=== PATIENT | male | born 1985 | race Caucasian/White ===

== ENCOUNTER → 2020-07-02 14:54 | Outpatient (BNVA) | payer OTHER, SELFPAY | PROVIDERS: Family Provider Nurse Practitioner; PCP Nurse Practitioner | DX: Z11.59 Encounter for screening for other viral diseases (principal) | CPT/HCPCS: 87635 ==

== ENCOUNTER 2020-07-19 21:16 | Emergency (ER) | payer SELFPAY ==
[2020-07-19 21:28] VITALS: BP 137/82; PULSE 92; RESP 18; TEMP 36.7; O2SAT 97; BMI 30.1
--- NOTE | 2020-07-19 21:37 | XR_ITS ---
WS: [id number] XR chest 1V portable [id number] REASON FOR EXAM: Dyspnea FINDINGS: Chest is unchanged compared to 09/09/2013. Very prominent ascending aorta for age. Cannot exclude a significant ascending aortic dilatation. Hea rt size is normal. Calcified granulomatous changes in both hemithoraces. No active pulmonary parenchymal or pleural dise ase. Bony thorax is intact. XR/XR chest 1V portable [id number] IMPRESSION: No acute abnormality. The [place] ascending aorta is tortuous and prominent for patient's age as above.
--- NOTE | 2020-07-19 21:38 | ECG_ITS ---
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
--- NOTE | 2020-07-19 21:46 | W.ED.ARRPALP ---
HPI - Arrhythmia/Palpitations General: Chief Complaint: Arrhythmia/Palpitations Stated Complaint: RAPID HEARTBEAT,SOB Time Seen by Provider: 07/19/20 21:36 Source: patient Mode of arrival: ambulatory Limitations: no limitations History of Present Illness: HPI narrative: Nicho is a nice 35-year-old male who comes in with multiple complaints. He complains of chest discomfort, palpitations, shortness of breath, cough, malaise among many other complaints. Patient states that he was diagnosed with Covid on the seventh of this month but after 2 weeks he was told by his doctor in the health department if he had no further symptoms he was no longer negative and could come out of quarantine. Patient still has occasional cough and shortness of breath. He denies any fever or sore throat. Alex's symptoms were abrupt in onset and he was most concerned about his palpitations. Patient states otherwise he has no complaints and is feeling somewhat better now but still felt like he should get checked out. When the symptoms were present he was unaware of anything that made the better or worse. He denies having anything similar in the past. Associated symptoms: Deny diaphoresis, nausea, pre-syncope, syncope or vomiting Review of Systems Const: Denies: fever(s), chills, body aches, fatigue, malaise or diaphoresis Eyes: Denies: change in vision, blurry vision, photophobia, eye discomfort, eye discharge, eye redness or yellow eyes ENMT: Denies: throat pain, odynophagia, hoarseness, swelling of lips/tongue, ear or mastoid pain, ear discharge, change in hearing or nasal discharge Card: Denies: chest pain, palpitations, irregular heart rhythm, edema, lightheadedness, syncope, pre-syncope, dyspnea on exertion or orthopnea Resp: Reports: dyspnea and non-productive cough; Denies: productive cough, wheezing, hemoptysis or chest congestion GI: Denies: nausea, vomiting, hematemesis, coffee ground emesis, heartburn, diarrhea, constipation, GI cramping, hematochezia or melena : Denies: flank pain, dysuria, urinary frequency, urinary urgency or hematuria Musc: Denies: neck pain, back pain, extremity pain, extremity swelling, joint pain, joint swelling, joint redness, joint warmth or joint stiffness Skin/Breast: Denies: rash, pruritus, erythema, skin pain or skin tenderness Neuro: Denies: headache(s), numbness in extremities, weakness in extremities, sensory changes, lack of coordination, difficulty walking, dizziness, vertigo, confusion, Slurred speech present or seizure-like activity Robin/Lymph: Denies: easy bruising, easy bleeding, petechiae, purpura or enlarged lymph nodes All/Imm: Denies: urticaria, throat swelling, tongue swelling, facial swelling or acute wheezing PFSH ED PFSH: Medical History Abnormal tympanic membrane of both ears Chest wall pain Ulnar nerve entrapment Surgical History No pertinent past surgical history Family History Grandmother Hypertension Grandfather Hypertension Dementia Social History Smoking and tobacco status: never smoked Alcohol intake: never Marital status: Number of children: 4 Current occupational status: employed Current occupation: construction Physical Exam Const: COMMON NORMALS: no acute distress, patient oriented x3, no limitations and alert GENERAL APPEARANCE: cooperative HENMT: COMMON NORMALS: normocephalic, atraumatic, external ears normal, EAC's normal and Normal external nose present HEAD & SCALP: normal to inspection, normocephalic and atraumatic FACE & SINUS: normal facial exam and face symmetric NOSE: Normal external nose present and Normal nares present EXTERNAL EAR: Yes external ears normal EXTERNAL AUDITORY CANAL: EAC's normal MOUTH: Normal oral and palatal mucosa present, lip normal and tongue normal Eye: COMMON NORMALS: Equal, round and reactive pupils present and conjunctivae normal GENERAL EYE: appearance normal, both eyes and all related structures ALIGNMENT: Yes alignment normal PERIORBITAL: periorbital findings normal EYELID: eyelids normal CONJUNCTIVA: Yes conjunctivae normal SCLERA: sclerae normal PUPIL: Yes Equal, round and reactive pupils present Neck/C-Spine: COMMON NORMALS: full ROM, no lymphadenopathy, supple, no meningeal signs and no JVD GENERAL: Yes normal visual inspection and Yes trachea midline Chest: COMMONS NORMALS: normal inspection of the chest and normal palpation of entire chest wall Resp: COMMON NORMALS: normal respiratory effort, No retractions, No use of accessory muscles and clear to auscultation bilaterally EFFORT & INSPECTION: Yes able to speak in complete sentences and Yes symmetric chest movement AUSCULTATION: clear to auscultation bilaterally, no crackles, no rales, no rhonchi and no wheezes Cardio: COMMON NORMALS: no JVD, regular rate, regular rhythm, S1 normal heart sound present and S2 normal heart sound present RATE: regular rate RHYTHM: regular rhythm HEART SOUNDS: S1 normal heart sound present, S2 normal heart sound present, no click, no gallops, no murmurs and no rubs GI: COMMON NORMALS: Soft to palpation and No hepatosplenomegaly present PALPATION: Yes Soft to palpation, No Tenderness to palpation present (GI), No Guarding due to palpation present (GI), No Rigid due to palpation, Yes No hepatosplenomegaly present, No Hernia present, No Palpable mass present and No Pulsatile mass present : COMMON NORMALS: Yes no CVA tenderness BLADDER/KIDNEY EXAM: Yes no CVA tenderness Back/Pelvis: COMMON NORMALS: no CVA tenderness, thoracic and lumbar spine normal to inspection, no thoracic nor lumbar tenderness and thoraco-lumbar ROM normal Extremity: COMMON NORMALS: normal to inspection, full ROM, capillary refill normal, no joint enlargement, no clubbing, cyanosis or edema and no calf tenderness Neuro: COMMON NORMALS: patient oriented x3, CN's II-XII intact bilaterally, moves all extremities, no focal motor deficits and no sensory deficits noted SENSORIUM/ORIENTATION: Yes alert MENINGEAL SIGNS: Yes no meningeal signs SPEECH: speech normal Psych: COMMON NORMALS: mental status grossly normal, Normal thought process present, cooperative, normal affect, speech normal and activity/motor behavior normal SPEECH: Yes normal speech THOUGHT PROCESS: Normal thought process present Skin: COMMON NORMALS: no rashes or lesions noted, turgor normal, no jaundice, no petechiae and no mottling GENERAL SKIN EXAM: no rashes or lesions noted and turgor normal Course Vital Signs: Vital signs: Vital Signs Temperature 98.1 F 07/19/20 21:28 Pulse Rate 89 07/19/20 23:00 Respiratory Rate 16 07/19/20 23:00 Blood Pressure 136/72 07/19/20 23:00 Pulse Oximetry 96 07/19/20 23:00 MDM - Arrhythmia/Palpitations MDM Narrative: Medical decision making narrative: Nicho is a very nice 35-year-old male who comes in with palpitations and some vague chest discomfort after. All of the symptoms have passed at this time without any specific treatment. Patient has no sign of acute coronary syndrome or PE. Patient is PERC rule negative but I still went ahead and got a D-dimer as he has recently had Covid and this can sometimes call clotting. His D-dimer is negative though. I did recommend and offer to monitor him further to be certain that he did not have any other things develop. I wanted to keep him to get a second EKG and troponin per the hospital chest pain pathway but he declined. Patient is a heart score of 0 and he is extremely low risk per the EDACS and TMACs pathways. Patient agrees to return if his symptoms change or worsen but at this time he is feeling better and wants to go home. Lab Data: Attestation: I reviewed the patient's lab results. Labs: Lab Results 07/19/20 07/19/20 07/19/20 Range/Units 21:51 21:51 21:51 WBC 12.1 H (4.0-10.0) 10^3/ uL RBC 4.84 (4.1-5.3) 10^6/u L Hgb 14.4 (11.7-16.6) g/dL Hct 42.6 (42.0-52.0) % MCV 88.0 (80-94) fL MCH 29.8 (28.0-34.0) pg MCHC 33.8 (30.0-36.0) g/dL RDW 11.9 L (12.1-15.1) % Plt Count 249 (130-400) 10^3/c mm MPV 9.7 (7.4-10.4) fL Neut % (Auto) 64.7 % Lymph % (Auto) 25.1 % [place] % (Auto) 8.4 % Eos % (Auto) 0.8 % Baso % (Auto) 0.5 % Neut # (Auto) 7.82 H (1.8-7.7) 10^3/u L Lymph # (Auto) 3.0 (0.8-4.8) 10^3/u L [place] # (Auto) 1.0 H (0.2-0.9) 10^3/u L Eos # (Auto) 0.1 (0.0-0.8) 10^3/u L Baso # (Auto) 0.1 (0.0-0.1) 10^3/u L Nucleated RBC % (a uto) 0 % Nucleated RBCs # 0.0 /100WBC PT 13.50 (12.1-14.9) SECO NDS INR 1.00 (0.8-1.2) D-Dimer <= 0.27 (0-0.59) ug/mIFE U Sodium 140 (136-145) mmol/L Potassium 3.9 (3.5-5.1) mmol/L Chloride 104 (98-107) mmol/L Carbon Dioxide 25 (22-29) mmol/L Anion Gap 14.9 (5-19) BUN 18 (6-20) mg/dL Creatinine 1.0 (0.7-1.2) mg/dL GFR Calculation 86.1 L (90-130) mL/min Glucose 135 H (65-115) mg/dL Calculated Osmolal ity 294 (285-295) mOsm/k g Lactic Acid (0.5-2.2) mmol/L Calcium 9.0 (8.5-10.5) mg/dL Magnesium 1.9 (1.7-2.3) mg/dL Total Bilirubin 0.2 (0.15-1.2) mg/dL AST 15 (0-40) U/L ALT 34 (0-41) U/L Alkaline Phosphata se 70 (40-130) IU/L Troponin T Baselin e (0-15) ng/L Total Protein 6.3 L (6.6-8.7) g/dL Albumin 4.2 (3.5-5.2) g/dL Globulin 2.1 (1.3-4.6) g/dL Urine Color (Yellow) Urine Appearance (CLEAR) Urine pH (5-7) Ur Specific Gravit y (1.005-1.030) Urine Protein (Negative) Urine Glucose (UA) (Normal) Urine Ketones (Negative) Urine Blood (Negative) Urine Nitrate (Negative) Urine Bilirubin (Negative) Urine Urobilinogen (Negative) mg/dL Ur Leukocyte Radha ase (Negative) Urine RBC (0-2) /hpf Urine WBC (0-5) /hpf Ur Squamous Epith Cells (0-5) /hpf Amorphous Sediment Urine Bacteria (NONE) /hpf SARS-CoV-2 Ag (Rap id) (Negative) 07/19/20 07/19/20 07/19/20 Range/Units 21:51 21:51 21:58 WBC (4.0-10.0) 10^3/ uL RBC (4.1-5.3) 10^6/u L Hgb (11.7-16.6) g/dL Hct (42.0-52.0) % MCV (80-94) fL MCH (28.0-34.0) pg MCHC (30.0-36.0) g/dL RDW (12.1-15.1) % Plt Count (130-400) 10^3/c mm MPV (7.4-10.4) fL Neut % (Auto) % Lymph % (Auto) % [place] % (Auto) % Eos % (Auto) % Baso % (Auto) % Neut # (Auto) (1.8-7.7) 10^3/u L Lymph # (Auto) (0.8-4.8) 10^3/u L [place] # (Auto) (0.2-0.9) 10^3/u L Eos # (Auto) (0.0-0.8) 10^3/u L Baso # (Auto) (0.0-0.1) 10^3/u L Nucleated RBC % (a uto) % Nucleated RBCs # /100WBC PT (12.1-14.9) SECO NDS INR (0.8-1.2) D-Dimer (0-0.59) ug/mIFE U Sodium (136-145) mmol/L Potassium (3.5-5.1) mmol/L Chloride (98-107) mmol/L Carbon Dioxide (22-29) mmol/L Anion Gap (5-19) BUN (6-20) mg/dL Creatinine (0.7-1.2) mg/dL GFR Calculation (90-130) mL/min Glucose (65-115) mg/dL Calculated Osmolal ity (285-295) mOsm/k g Lactic Acid 1.1 (0.5-2.2) mmol/L Calcium (8.5-10.5) mg/dL Magnesium (1.7-2.3) mg/dL Total Bilirubin (0.15-1.2) mg/dL AST (0-40) U/L ALT (0-41) U/L Alkaline Phosphata se (40-130) IU/L Troponin T Baselin e 6 (0-15) ng/L Total Protein (6.6-8.7) g/dL Albumin (3.5-5.2) g/dL Globulin (1.3-4.6) g/dL Urine Color (Yellow) Urine Appearance (CLEAR) Urine pH (5-7) Ur Specific Gravit y (1.005-1.030) Urine Protein (Negative) Urine Glucose (UA) (Normal) Urine Ketones (Negative) Urine Blood (Negative) Urine Nitrate (Negative) Urine Bilirubin (Negative) Urine Urobilinogen (Negative) mg/dL Ur Leukocyte Radha ase (Negative) Urine RBC (0-2) /hpf Urine WBC (0-5) /hpf Ur Squamous Epith Cells (0-5) /hpf Amorphous Sediment Urine Bacteria (NONE) /hpf SARS-CoV-2 Ag (Rap id) Negative (Negative) 07/19/20 Range/Units 22:18 WBC (4.0-10.0) 10^3/ uL RBC (4.1-5.3) 10^6/u L Hgb (11.7-16.6) g/dL Hct (42.0-52.0) % MCV (80-94) fL MCH (28.0-34.0) pg MCHC (30.0-36.0) g/dL RDW (12.1-15.1) % Plt Count (130-400) 10^3/c mm MPV (7.4-10.4) fL Neut % (Auto) % Lymph % (Auto) % [place] % (Auto) % Eos % (Auto) % Baso % (Auto) % Neut # (Auto) (1.8-7.7) 10^3/u L Lymph # (Auto) (0.8-4.8) 10^3/u L [place] # (Auto) (0.2-0.9) 10^3/u L Eos # (Auto) (0.0-0.8) 10^3/u L Baso # (Auto) (0.0-0.1) 10^3/u L Nucleated RBC % (a uto) % Nucleated RBCs # /100WBC PT (12.1-14.9) SECO NDS INR (0.8-1.2) D-Dimer (0-0.59) ug/mIFE U Sodium (136-145) mmol/L Potassium (3.5-5.1) mmol/L Chloride (98-107) mmol/L Carbon Dioxide (22-29) mmol/L Anion Gap (5-19) BUN (6-20) mg/dL Creatinine (0.7-1.2) mg/dL GFR Calculation (90-130) mL/min Glucose (65-115) mg/dL Calculated Osmolal ity (285-295) mOsm/k g Lactic Acid (0.5-2.2) mmol/L Calcium (8.5-10.5) mg/dL Magnesium (1.7-2.3) mg/dL Total Bilirubin (0.15-1.2) mg/dL AST (0-40) U/L ALT (0-41) U/L Alkaline Phosphata se (40-130) IU/L Troponin T Baselin e (0-15) ng/L Total Protein (6.6-8.7) g/dL Albumin (3.5-5.2) g/dL Globulin (1.3-4.6) g/dL Urine Color Yellow (Yellow) Urine Appearance Clear (CLEAR) Urine pH 5.0 (5-7) Ur Specific Gravit y 1.020 (1.005-1.030) Urine Protein Neg (Negative) Urine Glucose (UA) Norm (Normal) Urine Ketones Negative (Negative) Urine Blood 2+ H (Negative) Urine Nitrate Negative (Negative) Urine Bilirubin Neg (Negative) Urine Urobilinogen Norm (Negative) mg/dL Ur Leukocyte Radha ase Negative (Negative) Urine RBC 5-10 H (0-2) /hpf Urine WBC None (0-5) /hpf Ur Squamous Epith Cells None (0-5) /hpf Amorphous Sediment Not Reportable Urine Bacteria Trace (NONE) /hpf SARS-CoV-2 Ag (Rap id) (Negative) Imaging Data^: CXR: Attestation: I personally reviewed and interpreted this imaging study as follows: My impression: No acute cardiopulmonary findings. EKG Data^: EKG 1: Attestation: I personally reviewed and interpreted this EKG as follows: EKG interpretation date: 07/19/20 EKG interpretation time: 21:25 Interpretation: Normal sinus rhythm at 94 beats a minute, no blocks, normal intervals, normal axis, nonspecific ST-T wave changes. Wandering baseline artifact. Discharge Plan Discharge Patient Disposition: Home Clinical Impression: Palpitations Chest pain Qualifiers: Chest pain type: unspecified Qualified Code(s): R07.9 - Chest pain, unspecified Condition: Stable Prescriptions: No Action ibuprofen 200 mg capsule 800 mg PO Q6H PRNRF: 0 meloxicam 15 mg tablet 15 mg PO DAILY Qty: 20 RF: 0 Discharge Orders: Discharge Order (Routine); Ordered 07/19/20 Ordered By: Angelina Taylor Referrals: Boby Art, HERNÁNC [Primary Care Provider] - 1-3 days Discharge Diet: Advance as tolerated Discharge Activity: Increase activity as tolerated Patient Instructions: Chest Pain (ED), Palpitations (ED) Activity Restrictions/Additional Instructions: Please return to the ER immediately for any of the signs or symptoms listed on your discharge instruction sheets, worsening/changing of your symptoms, you are not getting better as quickly as expected, or for ANY other cause or concerns. You have been offered further evaluation and care of your heart but have declined. Of course any heart problem can potentially be life-threatening so if your symptoms return or you develop new symptoms or anything changes or worsens in any way at all please return to the ER immediately for recheck. Coding Level of Care Code ED Major Case Detective for Chg Fwd Exam Comprehensive
[2020-07-19 21:58] LABS: Basophils # 0.1 10^3/uL (0.0-0.1); Basophils % 0.5 %; Eosinophils # 0.1 10^3/uL (0.0-0.8); Eosinophils % 0.8 %; Hematocrit 42.6 % (42.0-52.0); Hemoglobin 14.4 g/dL (11.7-16.6); Lymphocytes % 25.1 %; Mean Corpuscular HGB Conc 33.8 g/dL (30.0-36.0); Mean Corpuscular Hemoglobin 29.8 pg (28.0-34.0); Mean Platelet Volume 9.7 fL (7.4-10.4); Monocytes % 8.4 %; Neutrophils # 7.82 10^3/uL (1.8-7.7); Neutrophils % 64.7 %; Nucleated Red Blood Cells % 0 %; Platelet Count 249 10^3/cmm (130-400); Red Blood Count 4.84 10^6/uL (4.1-5.3); Red Cell Distribution Width 11.9 % (12.1-15.1); White Blood Count 12.1 10^3/uL (4.0-10.0)
[2020-07-19 22:03] VITALS: PULSE 86; RESP 18; O2SAT 96
[2020-07-19] MEDS: sodium chloride 0.9% 1,000 ML 999 ML IV (22:22)
[2020-07-19 22:23] LABS: D Dimer <= 0.27 ug/mIFEU (0-0.59)
[2020-07-19 22:28] LABS: Alanine Aminotransferase 34 U/L (0-41); Albumin Level 4.2 g/dL (3.5-5.2); Alkaline Phosphatase 70 IU/L (40-130); Anion Gap 14.9 (5-19); Aspartate Amino Transferase 15 U/L (0-40); Blood Urea Nitrogen 18 mg/dL (6-20); Carbon Dioxide 25 mmol/L (22-29); Chloride 104 mmol/L (98-107); Globulin 2.1 g/dL (1.3-4.6); Glomerular Filtration Rate 86.1 mL/min (90-130); Glucose 135 mg/dL (65-115); Magnesium 1.9 mg/dL (1.7-2.3); Osmolality Calculated 294 mOsm/kg (285-295); Potassium 3.9 mmol/L (3.5-5.1); Sodium 140 mmol/L (136-145); Total Bilirubin 0.2 mg/dL (0.15-1.2); Total Protein 6.3 g/dL (6.6-8.7)
[2020-07-19 22:28] LABS: Lactic Sepsis W/Reflex 1.1 mmol/L (0.5-2.2)
[2020-07-19 22:32] LABS: Troponin(5th) Baseline 6 ng/L (0-15)
[2020-07-19 22:45] LABS: Glucose Urine UA Norm (Normal); Protein Urine Neg (Negative); Urine Appearance Clear (CLEAR); Urine Color Yellow (Yellow)
[2020-07-19 22:46] LABS: Add Urine Culture? No; Add Urine Microscopic? YES; Bacteria Urine TRACE /hpf; Bilirubin Urine Neg (Negative); Blood Urine 2+ (Negative); Ketones Urine Negative (Negative); Leukocyte Esterase Urine Negative (Negative); Nitrate Urine Negative (Negative); Urobilinogen Urine Norm (Negative)
[2020-07-19 23:00] VITALS: BP 136/72; PULSE 89; RESP 16; O2SAT 96
[2020-07-19 23:00] LABS: SARS Covid-2 Antigen Negative (Negative)
[2020-07-19 23:47] VITALS: BP 128/78; PULSE 80; RESP 16; O2SAT 98
== END 2020-07-19 23:47 | disposition home or self-care (01) ==
PROVIDERS: Emergency Provider Emergency Medicine; PCP Nurse Practitioner
DX: R07.9 Chest pain, unspecified (principal); R00.2 Palpitations
CPT/HCPCS: 12345; 71045; 80053; 81001; 83605; 83735; 84484; 85025; 85378; 85610; 87426; 93005; 96360; 99283; J7030

== ENCOUNTER 2020-08-22 18:58 | Emergency (ER) | payer SELFPAY ==
--- NOTE | 2020-08-22 19:00 | XRR_ITS ---
PROCEDURE INFORMATION: Exam: XR Chest, 1 View Exam date and time: 08/22/2020 7:11 PM Age: 35 years old Clinical indication: Patient HX: C/O chest pain and pressure; Additional info: Cp TECHNIQUE: Imaging protocol: XR of the chest Views: 1 view. COMPARISON: CR XR chest 1V portable [id number] 07/19/2020 9:48 PM FINDINGS: Lungs: Unremarkable. No consolidation. Pleural space: Unremarkable. No pleural effusion. No pneumothorax. Heart/Mediastinum: Unremarkable. No cardiomegaly. Bones/joints: Unremarkable. XR/XR chest 1V portable [id number] IMPRESSION: No acute findings.
--- NOTE | 2020-08-22 19:00 | ECG_ITS ---
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 Measurements Intervals [place] Rate: 76 P: 59 [place]: 174 QRS: 46 QRSD: 82 T: 40 QT: 367 QTc: 413 Interpretive Statements SINUS RHYTHM Compared to ECG 07/19/2020 21:25:03 T-wave abnormality no longer present Electronically Signed On 08-23-2020 23:41:22 RESIDENCY PROGRAM COORDINATOR by Kaitlynn Delarosa M.D. [id number]
[2020-08-22 19:01] VITALS: BP 156/91; PULSE 79; RESP 18; TEMP 36.5; O2SAT 98; BMI 30.2
--- NOTE | 2020-08-22 21:04 | ED_ITS ---
HPI - Chest Pain General: Chief Complaint: Chest Pain Stated Complaint: CP Time Seen by Provider: 08/22/20 20:58 History of Present Illness: HPI narrative: Patient is a 35-year-old male comes to the ED with complaints of chest pain. Patient says symptoms started approximately 3 days ago. He reports being positive for Covid approximately 2 months ago but has since recovered. He was seen here in the ED on July 19 for same complaint. He says for the past 3 days he has had on and off again chest pain that is centrally located right over the sternum. He says chest pain seems to get worse after he eats or if he is laying flat. He says he does have a history of some heartburn/acid reflux and takes Mylanta usually a couple times a week. Currently here in the ED he says his chest pain has completely resolved. Denies any shortness of breath, fever, abdominal pain, nausea/vomiting, dysuria or hematuria. He has been having some on and off again constipation diarrhea for the past month. Associated symptoms: Deny abdominal pain, dyspnea, fever(s), nausea, palpitations or vomiting Review of Systems Const: Denies: fever(s), chills or fatigue Eyes: Denies: change in vision or eye discomfort ENMT: Denies: throat pain, odynophagia, nasal discharge or nasal congestion Card: Reports: chest pain; Denies: palpitations, edema, swelling of feet/ankles, dyspnea on exertion or orthopnea Resp: Denies: dyspnea, productive cough or non-productive cough GI: Denies: abdominal pain, nausea, vomiting, diarrhea, constipation or hematochezia : Denies: flank pain, difficulty urinating, dysuria or hematuria Musc: Denies: neck pain, back pain or extremity swelling Skin/Breast: Denies: rash or new lesions Neuro: Denies: headache(s), numbness in extremities or weakness in extremities [facility] ED PFSH: Medical History Abnormal tympanic membrane of both ears Chest wall pain Ulnar nerve entrapment Surgical History No pertinent past surgical history Family History Grandmother Hypertension Grandfather Hypertension Dementia Social History Smoking and tobacco status: never smoked Alcohol intake: never Marital status: Number of children: 4 Current occupational status: employed Current occupation: construction Physical Exam Const: COMMON NORMALS: no acute distress, patient oriented x3, healthy appearing and alert GENERAL APPEARANCE: cooperative and comfortable HENMT: COMMON NORMALS: normocephalic HEAD & SCALP: normocephalic MOUTH: Normal oral and palatal mucosa present THROAT: posterior oropharynx normal and uvula midline Eye: COMMON NORMALS: Equal, round and reactive pupils present PUPIL: Yes Equal, round and reactive pupils present Neck/C-Spine: COMMON NORMALS: supple GENERAL: Yes normal visual inspection Chest: CHEST: Yes tenderness sternum and costochondral junction Resp: COMMON NORMALS: normal respiratory effort, No retractions, No use of accessory muscles and clear to auscultation bilaterally AUSCULTATION: clear to auscultation bilaterally Cardio: COMMON NORMALS: regular rate, regular rhythm, S1 normal heart sound present, S2 normal heart sound present, No gallops present (Cardio), No clicks present (Cardio), No murmurs present (Cardio) and Peripheral pulses 2+ throughout RATE: regular rate RHYTHM: regular rhythm HEART SOUNDS: S1 normal heart sound present and S2 normal heart sound present PERIPHERAL PULSES: Peripheral pulses 2+ throughout GI: COMMON NORMALS: Normal to inspection, nondistended, normoactive bowel sarah nds present, Soft to palpation, non-tender and no masses PALPATION: Yes Soft to palpation : COMMON NORMALS: Yes no CVA tenderness BLADDER/KIDNEY EXAM: Yes no CVA tenderness Back/Pelvis: COMMON NORMALS: no CVA tenderness Extremity: COMMON NORMALS: normal to inspection and no pedal edema Neuro: COMMON NORMALS: patient oriented x3 and moves all extremities SENSORIUM/ORIENTATION: Yes alert Skin: GENERAL SKIN EXAM: dry skin Course Reevaluation(s): Reevaluation #1: Here in the ED patient's chest pain is completely resolved and he has had no further episodes of chest pain while here in the ED. Vital Signs: Vital signs: Vital Signs Temperature 97.7 F 08/22/20 19:01 Pulse Rate 78 08/22/20 22:16 Respiratory Rate 16 08/22/20 22:16 Blood Pressure 128/83 08/22/20 22:16 Pulse Oximetry 98 08/22/20 22:16 MDM - Chest Pain MDM Narrative: Medical decision making narrative: Patient is a 35-year-old male who comes to the ED with chest pain. He was seen here for same complaint on July 19. Symptoms have been going on for approximately 3 days. While here in the ED he says his chest pain has resolved. Patient has some tenderness over the costochondral junction upon palpation. No other significant physical exam findings and the lungs are clear to auscultation bilaterally. CBC and CMP were unremarkable. D-dimer was normal at 0.27. Troponin negative and ECG showed no ST segment elevation or depression. Chest x-ray showed no acute findings. Patient discharged and diagnosed with chest wall pain. He was told to take ibuprofen and apply cold pack on sore spot of chest couple symptoms. Return to ED precautions given. Follow-up with PCP in 7 to 10 days. Patient understood and agreed with plan. Lab Data: Attestation: I reviewed the patient's lab results. Labs: Lab Results 08/22/20 08/22/20 08/22/20 Range/Units 21:05 21:05 21:05 WBC 11.1 H (4.0-10.0) 10^3/ uL RBC 5.15 (4.1-5.3) 10^6/u L Hgb 15.4 (11.7-16.6) g/dL Hct 45.5 (42.0-52.0) % MCV 88.3 (80-94) fL MCH 29.9 (28.0-34.0) pg MCHC 33.8 (30.0-36.0) g/dL RDW 11.9 L (12.1-15.1) % Plt Count 255 (130-400) 10^3/c mm MPV 9.6 (7.4-10.4) fL Neut % (Auto) 67.9 % Lymph % (Auto) 23.5 % [facility] % (Auto) 6.6 % Eos % (Auto) 1.1 % Baso % (Auto) 0.5 % Neut # (Auto) 7.54 (1.8-7.7) 10^3/u L Lymph # (Auto) 2.6 (0.8-4.8) 10^3/u L [facility] # (Auto) 0.7 (0.2-0.9) 10^3/u L Eos # (Auto) 0.1 (0.0-0.8) 10^3/u L Baso # (Auto) 0.1 (0.0-0.1) 10^3/u L Nucleated RBC % (a uto) 0 % Nucleated RBCs # 0.0 /100WBC D-Dimer (0-0.59) ug/mIFE U Sodium 142 (136-145) mmol/L Potassium 4.0 (3.5-5.1) mmol/L Chloride 104 (98-107) mmol/L Carbon Dioxide 26 (22-29) mmol/L Anion Gap 16.0 (5-19) BUN 13 (6-20) mg/dL Creatinine 1.0 (0.7-1.2) mg/dL GFR Calculation 86.1 L (90-130) mL/min Glucose 108 (65-115) mg/dL Calculated Osmolal ity 295 (285-295) mOsm/k g Calcium 9.1 (8.5-10.5) mg/dL Total Bilirubin 0.2 (0.15-1.2) mg/dL AST 17 (0-40) U/L ALT 24 (0-41) U/L Alkaline Phosphata se 78 (40-130) IU/L Troponin T Baselin e 6 (0-15) ng/L Total Protein 7.0 (6.6-8.7) g/dL Albumin 4.8 (3.5-5.2) g/dL Globulin 2.2 (1.3-4.6) g/dL 08/22/20 Range/Units 21:05 WBC (4.0-10.0) 10^3/ uL RBC (4.1-5.3) 10^6/u L Hgb (11.7-16.6) g/dL Hct (42.0-52.0) % MCV (80-94) fL MCH (28.0-34.0) pg MCHC (30.0-36.0) g/dL RDW (12.1-15.1) % Plt Count (130-400) 10^3/c mm MPV (7.4-10.4) fL Neut % (Auto) % Lymph % (Auto) % [facility] % (Auto) % Eos % (Auto) % Baso % (Auto) % Neut # (Auto) (1.8-7.7) 10^3/u L Lymph # (Auto) (0.8-4.8) 10^3/u L [facility] # (Auto) (0.2-0.9) 10^3/u L Eos # (Auto) (0.0-0.8) 10^3/u L Baso # (Auto) (0.0-0.1) 10^3/u L Nucleated RBC % (a uto) % Nucleated RBCs # /100WBC D-Dimer <= 0.27 (0-0.59) ug/mIFE U Sodium (136-145) mmol/L Potassium (3.5-5.1) mmol/L Chloride (98-107) mmol/L Carbon Dioxide (22-29) mmol/L Anion Gap (5-19) BUN (6-20) mg/dL Creatinine (0.7-1.2) mg/dL GFR Calculation (90-130) mL/min Glucose (65-115) mg/dL Calculated Osmolal ity (285-295) mOsm/k g Calcium (8.5-10.5) mg/dL Total Bilirubin (0.15-1.2) mg/dL AST (0-40) U/L ALT (0-41) U/L Alkaline Phosphata se (40-130) IU/L Troponin T Baselin e (0-15) ng/L Total Protein (6.6-8.7) g/dL Albumin (3.5-5.2) g/dL Globulin (1.3-4.6) g/dL Imaging Data^: CXR: Attestation: I personally reviewed and interpreted this imaging study as follows: My impression: No acute findings on chest x-ray. EKG Data^: EKG 1: Attestation: I personally reviewed and interpreted this EKG as follows: EKG interpretation date: 08/22/20 Interpretation: Normal sinus rhythm. 76 bpm, no ST segment elevation or depression seen. Discharge Plan Discharge Patient Disposition: Home Clinical Impression: Chest wall pain Condition: Stable Prescriptions: No Action ibuprofen 200 mg capsule 800 mg PO Q6H PRNRF: 0 meloxicam 15 mg tablet 15 mg PO DAILY Qty: 20 RF: 0 Discharge Orders: Discharge ED (Routine); Ordered 08/22/20 Ordered By: Vaughn Mcclendon Referrals: Boby Art, SCENIC DESIGNER-C [Primary Care Provider] - Discharge Diet: Regular Discharge Activity: Resume usual activity Patient Instructions: Costochondritis (ED), Noncardiac Chest Pain (ED) Activity Restrictions/Additional Instructions: Follow-up with medical provider as directed in 7 to 10 days for reevaluation. Take [id number] ibuprofen to help with chest pain and inflammation. He can apply cold pack on her chest as well. Talk with your PCP about potentially starting you on an acid reflux medication. Return to the ER or your medical provider if condition worsens. Please read and understand discharge ins tructions. If any questions, please ask. Coding Level of Care Code ED Head Refrigerating Engineer for Justyna Fwsincere Exam Comprehensive
[2020-08-22 21:14] LABS: Basophils # 0.1 10^3/uL (0.0-0.1); Basophils % 0.5 %; Eosinophils # 0.1 10^3/uL (0.0-0.8); Eosinophils % 1.1 %; Hematocrit 45.5 % (42.0-52.0); Hemoglobin 15.4 g/dL (11.7-16.6); Lymphocytes # 2.6 10^3/uL (0.8-4.8); Lymphocytes % 23.5 %; Mean Corpuscular HGB Conc 33.8 g/dL (30.0-36.0); Mean Corpuscular Hemoglobin 29.9 pg (28.0-34.0); Mean Corpuscular Volume 88.3 fL (80-94); Mean Platelet Volume 9.6 fL (7.4-10.4); Monocytes # 0.7 10^3/uL (0.2-0.9); Monocytes % 6.6 %; Neutrophils # 7.54 10^3/uL (1.8-7.7); Neutrophils % 67.9 %; Nucleated Red Blood Cells % 0 %; Platelet Count 255 10^3/cmm (130-400); Red Blood Count 5.15 10^6/uL (4.1-5.3); Red Cell Distribution Width 11.9 % (12.1-15.1); White Blood Count 11.1 10^3/uL (4.0-10.0)
[2020-08-22 21:34] LABS: Alanine Aminotransferase 24 U/L (0-41); Albumin Level 4.8 g/dL (3.5-5.2); Alkaline Phosphatase 78 IU/L (40-130); Aspartate Amino Transferase 17 U/L (0-40); Blood Urea Nitrogen 13 mg/dL (6-20); Calcium 9.1 mg/dL (8.5-10.5); Carbon Dioxide 26 mmol/L (22-29); Chloride 104 mmol/L (98-107); Globulin 2.2 g/dL (1.3-4.6); Glomerular Filtration Rate 86.1 mL/min (90-130); Glucose 108 mg/dL (65-115); Osmolality Calculated 295 mOsm/kg (285-295); Sodium 142 mmol/L (136-145); Total Bilirubin 0.2 mg/dL (0.15-1.2)
[2020-08-22 21:36] LABS: Troponin(5th) Baseline 6 ng/L (0-15)
[2020-08-22 21:43] VITALS: BP 148/87; PULSE 81; RESP 18; O2SAT 99
[2020-08-22 21:54] LABS: D Dimer <= 0.27 ug/mIFEU (0-0.59)
[2020-08-22 22:16] VITALS: BP 128/83; PULSE 78; RESP 16; O2SAT 98
== END 2020-08-22 22:17 | disposition home or self-care (01) ==
PROVIDERS: Emergency Medicine; Emergency Provider Physician Assistant; PCP Nurse Practitioner
DX: R07.89 Other chest pain (principal)
CPT/HCPCS: 12345; 71045; 80053; 84484; 85025; 85378; 93005; 99282; 99283

== ENCOUNTER 2020-12-28 15:04 | Outpatient (CLI) | payer SELFPAY ==
--- NOTE | 2020-12-28 15:12 | XR_ITS ---
WS: [id number] Chest 2 views, 12/28/2020 Clinical Data: left chest and upper abd pain for 3 days. Comparison: Portable chest, 08/22/2020. Findings: No nodules, masses or effusions are seen. The heart is normal. The pulmonary vascularity is not increased. No pneumonia or pneumothorax is seen. XR/XR chest 2V* [id number] Impression: Negative chest.
--- NOTE | 2020-12-28 15:12 | US_ITS ---
WS: [id number] ULTRASOUND ABDOMEN CLINICAL INFORMATION: LUQ abd and lower left chest wall pain for 3 days. COMPARISON: None. FINDINGS: Liver Size: Normal. Craniocaudal length: 15.9 cm. Echogenicity: Normal. Surface nodularity: None. Mass (size and location): None. Hepatopedal flow in the main portal vein. Bile ducts Intrahepatic ducts: Normal. Common bile duct diameter: 0.3 cm. Gallbladder Normal. Gallstones: None. Gallbladder sludge: None. Gallbladder wall thickening: None. Pericholecystic fluid: None. Sonographic Ledesma sign: Absent. Pancreas Not well seen due to bowel gas Spleen Splenomegaly: None. Craniocaudal length: 11.0 cm. Right kidney: Normal. Hydronephrosis: None. Size: 11.0 cm x 4.7 cm x 4.1 cm Left kidney: Normal. Hydronephrosis: None. Size: 9.5 cm x 5.1 cm x 4.3 cm. Abdominal aorta and IVC Visualized portions are normal. Ascites: None. US/US abdomen complete* [id number] IMPRESSION: 1. Normal liver. 2. Normal gallbladder. No cholelithiasis. Normal common bile duct. 3. Both kidneys are normal in appearance. No hydronephrosis. 4. Normal spleen. 5. No ascites.
== END 2020-12-28 15:05 | disposition home or self-care (01) ==
PROVIDERS: PCP Family Medicine Adult Medicine; Visit Provider Family Medicine Adult Medicine
DX: G43.709 Chronic migraine without aura, not intractable, without status migrainosus (principal); R07.89 Other chest pain; R10.12 Left upper quadrant pain
CPT/HCPCS: 71046; 76700; 80053; 81000; 85025

== ENCOUNTER 2022-06-26 09:10 | Emergency (ER) | payer OTHER, SELFPAY ==
--- NOTE | 2022-06-26 09:39 | XRR_ITS ---
PROCEDURE INFORMATION: Exam: XR Abdomen Exam date and time: 06/26/2022 9:49 AM Age: 37 years old Clinical indication: Patient HX: 37-year-old male with a history of nephrolithiasis presents to the emergency room with complaints of right flank pain radiating down into the groin. Began last night he has not had any hematuria that he has noted no fever sweats or chills. ; Additional info: Flank pain, history of kidney stones TECHNIQUE: Imaging protocol: Radiologic exam of the abdomen. Views: Frontal supine view of the abdomen. 1 View. Total images: 3209 COMPARISON: US abdomen complete* [id number] 12/28/2020 3:41 PM FINDINGS: Gastrointestinal tract: There is a large amount of fecal matter seen throughout the colon consistent with constipation. Organs: No renal, ureteral, nor bladder calculi detected. Bones/joints: Unremarkable. XR/XR KUB portable [id number] IMPRESSION: 1. There is a large amount of fecal matter seen throughout the colon consistent with constipation. 2. No renal, ureteral, nor bladder calculi detected.
--- NOTE | 2022-06-26 09:44 | W.ED.MALEGU ---
HPI - Male Genitourinary General: Chief complaint: Urogenital-Male Stated complaint: Possible kidney stones Time Seen by Provider: 06/26/22 09:14 Source: patient Mode of arrival: ambulatory History of Present Illness: 37-year-old male with a history of nephrolithiasis presents to the emergency room with complaints of right flank pain radiating down into the groin. Began last night he has not had any hematuria that he has noted no fever sweats or chills. He was initially seen at one of the urgent care clinic and given a shot of Toradol IM on arrival here his pain is much improved. No other illness recently no cough or shortness of breath. He denies recurrent UTIs. Denies any penile drainage. The pain does radiate down into the right testicle. It is slightly worse when he urinates. No recent injuries to the testicles. MD Complaint: testicle pain and dysuria Onset (ago): hour(s) Duration: constant Location: right testicle Radiation: right inguinal region and right flank Severity: moderate Quality: sharp Relieving factors: medication Exacerbating factors: urination Associated symptoms: Reports dysuria, nausea and vomiting; Deny discharge, fevers/chills, hematuria, rash, swelling, urinary incontinence, urinary retention or mass Review of Systems Const: Denies: fever(s), chills, body aches, change in appetite, fatigue or malaise ENMT: Denies: throat pain, ear or mastoid pain, nasal discharge or nasal congestion Card: Denies: chest pain, edema, dyspnea on exertion or orthopnea Resp: Denies: dyspnea, productive cough or non-productive cough GI: Reports: nausea and vomiting : Reports: dysuria; Denies: flank pain, difficulty urinating, urinary frequency, urinary urgency, urinary incontinence or hematuria Skin/Breast: Denies: rash or pruritus PFS ED PFSH: Medical History Abnormal tympanic membrane of both ears Acute bronchitis and bronchiolitis Chest wall pain, chronic Elevated WBC count Hematuria Left upper quadrant abdominal pain of unknown etiology Nephrolithiasis Ulnar nerve entrapment Surgical History No pertinent past surgical history Family History Grandmother Hypertension Grandfather Hypertension Dementia Social History Smoking and tobacco status: current every day smoker Alcohol intake: never Marital status: Number of children: 4 Current occupational status: employed Current occupation: construction Physical Exam Const: COMMON NORMALS: no acute distress GENERAL APPEARANCE: cooperative and comfortable ORIENTATION/CONSCIOUSNESS: Yes awake, Yes oriented to person, Yes oriented to place and Yes oriented to time HENMT: COMMON NORMALS: normocephalic, atraumatic and hearing grossly normal bilaterally HEAD & SCALP: normocephalic and atraumatic Resp: COMMON NORMALS: normal respiratory effort, No retractions, No use of accessory muscles and clear to auscultation bilaterally AUSCULTATION: clear to auscultation bilaterally Cardio: COMMON NORMALS: regular rate, regular rhythm and No murmurs present (Cardio) RATE: regular rate RHYTHM: regular rhythm GI: COMMON NORMALS: Soft to palpation and No hepatosplenomegaly present AUSCULTATION: Yes normoactive bowel sounds PALPATION: Yes Soft to palpation, No Tenderness to palpation present (GI), No Guarding due to palpation present (GI) and Yes No hepatosplenomegaly present : COMMON NORMALS: Yes no CVA tenderness BLADDER/KIDNEY EXAM: Yes no CVA tenderness Back/Pelvis: COMMON NORMALS: no CVA tenderness Extremity: COMMON NORMALS: normal to inspection, capillary refill normal, no clubbing, cyanosis or edema, no calf tenderness and no pedal edema Neuro: SENSORIUM/ORIENTATION: Yes oriented to person, Yes oriented to place and Yes oriented to time Skin: COMMON NORMALS: no rashes or lesions noted GENERAL SKIN EXAM: no rashes or lesions noted [facility] - Male Medical Decision Making CT. She has passed the stone is in the bladder he is having minimal discomfort at home. Reviewed with the patient we will discharge home with urine strainer to collect stone follow-up with urology can use ibuprofen or Tylenol for pain if worsens or changes return Medical Records I reviewed the patient's medical records. Lab Data I reviewed the patient's lab results. : 06/26/22 09:45 06/26/22 09:45 Radiology Impressions KUB X-Ray 06/26/22 09:39 IMPRESSION: 1. There is a large amount of fecal matter seen throughout the colon consistent with constipation. 2. No renal, ureteral, nor bladder calculi detected. Abdomen/Pelvis CT 06/26/22 10:19 IMPRESSION: 1. Normal appendix in the RIGHT lower quadrant. No evidence of acute appendicitis. 2. No hydronephrosis in RIGHT kidney. 3. Slight RIGHT ureterectasis with slight induration of the RIGHT ureter suspicious for recently passed calculus. Tiny 3 mm suspected recently passed calculus in the dorsal bladder measuring 3 mm. Slightly prominent RIGHT extrarenal pelvis. 4. RIGHT upper pole renal cyst measuring 12 mm. 5. No other suspicious findings. Laboratory Results WBC 12.2 10^3/uL (4.0-10.0) H 06/26/22 09:45 RBC 5.13 10^6/uL (4.1-5.3) 06/26/22 09:45 Hgb 15.4 g/dL (11.7-16.6) 06/26/22 09:45 Hct 45.3 % (42.0-52.0) 06/26/22 09:45 MCV 88.3 fl (80-94) 06/26/22 09:45 MCH 30.0 pg (28.0-34.0) 06/26/22 09:45 MCHC 34.0 g/dL (30.0-36.0) 06/26/22 09:45 RDW 12.1 % (12.1-15.1) 06/26/22 09:45 Plt Count 212 10^3/cmm (130-400) 06/26/22 09:45 MPV 9.6 fL (7.4-10.4) 06/26/22 09:45 Neut % (Auto) 86.1 % 06/26/22 09:45 Lymph % (Auto) 8.3 % 06/26/22 09:45 [place] % (Auto) 4.0 % 06/26/22 09:45 Eos % (Auto) 0.2 % 06/26/22 09:45 Baso % (Auto) 0.4 % 06/26/22 09:45 Neut # (Auto) 10.49 10^3/uL (1.8-7.7) H 06/26/22 09:45 Lymph # (Auto) 1.0 10^3/uL (0.8-4.8) 06/26/22 09:45 [place] # (Auto) 0.5 10^3/uL (0.2-0.9) 06/26/22 09:45 Eos # (Auto) 0.0 10^3/uL (0.0-0.8) 06/26/22 09:45 Baso # (Auto) 0.1 10^3/uL (0.0-0.1) 06/26/22 09:45 Nucleated RBC % (auto) 0 % 06/26/22 09:45 Nucleated RBCs # 0.0 /100WBC 06/26/22 09:45 Sodium 139 mmol/L (136-145) 06/26/22 09:45 Potassium 4.0 mmol/L (3.5-5.1) 06/26/22 09:45 Chloride 106 mmol/L (98-107) 06/26/22 09:45 Carbon Dioxide 23 mmol/L (22-29) 06/26/22 09:45 Anion Gap 14.0 (5-19) 06/26/22 09:45 BUN 18 mg/dL (6-20) 06/26/22 09:45 Creatinine 1.3 mg/dL (0.7-1.2) H 06/26/22 09:45 GFR Calculation 62.8 mL/min (90-130) L 06/26/22 09:45 Glucose 155 mg/dL (65-115) H 06/26/22 09:45 Calculated Osmolality 293 mOsm/kg (285-295) 06/26/22 09:45 Calcium 9.2 mg/dL (8.5-10.5) 06/26/22 09:45 Urine Color Yellow (Yellow) 06/26/22 09:37 Urine Appearance Clear (CLEAR) 06/26/22 09:37 Urine pH 6 (5-7) 06/26/22 09:37 Ur Specific [place] 1.025 (1.005-1.030) 06/26/22 09:37 Urine Protein Neg (Negative) 06/26/22 09:37 Urine Glucose (UA) Norm (Normal) 06/26/22 09:37 Urine Ketones Negative (Negative) 06/26/22 09:37 Urine Blood 2+ (Negative) H 06/26/22 09:37 Urine Nitrate Negative (Negative) 06/26/22 09:37 Urine Bilirubin Neg (Negative) 06/26/22 09:37 Urine Urobilinogen Norm mg/dL (Negative) 06/26/22 09:37 Ur Leukocyte Esterase Negative (Negative) 06/26/22 09:37 Urine RBC 0-4 /hpf (0-2) H 06/26/22 09:37 Urine WBC None /hpf (0-5) 06/26/22 09:37 Ur Squamous Epith Cells None /hpf (0-5) 06/26/22 09:37 Amorphous Sediment Not Reportable 06/26/22 09:37 Urine Bacteria None /hpf (NONE) 06/26/22 09:37 Discharge Plan Discharge Patient Disposition: Home Clinical Impression: Nephrolithiasis Condition: Stable Prescriptions: No Action rizatriptan [Maxalt-CURATORIAL ASSISTANT] 10 mg tablet,disintegrating See Rx Instructions PO .COMPLEX Qty: 14 3RF Rx Instructions: take 1 at onset of quiroz, then take another in 2 hours. no more than 2 in 24 hours. ketorolac 10 mg tablet 10 mg PO TID PRN (Reason: pain) 5 Days Qty: 20 0RF Topamax 50 mg tablet 50 mg PO BEDTIME Discharge Orders: Discharge ED (Routine); Ordered 06/26/22 Ordered By: Paulie Oleary Referrals: Desmond Barker MD [Primary Care Provider] - Patient Instructions: Opioid Safety, Pain Management Activity Restrictions/Additional Instructions: Case management make arrangements for you to follow-up with urology. Strain urine to catch stone to submit for pathology if collected. Return if you have worsening symptoms. Coding Level of Care Code ED Intelligence Support Officer for Chg Fwd Exam Comprehensive
[2022-06-26 09:50] LABS: Add Urine Microscopic? YES; Bilirubin Urine Neg (Negative); Blood Urine 2+ (Negative); Glucose Urine UA Norm (Normal); Ketones Urine Negative (Negative); Leukocyte Esterase Urine Negative (Negative); Nitrate Urine Negative (Negative); Protein Urine Neg (Negative); Specific Gravity, Urine 1.025 (1.005-1.030); Urine Appearance Clear (CLEAR); Urine Color Yellow (Yellow); Urobilinogen Urine Norm (Negative); pH Urine 6 (5-7)
[2022-06-26 09:51] LABS: Add Urine Culture? No; RBC Urine 0-4 /hpf (0-2)
[2022-06-26] MEDS: sodium chloride 0.9% 1,000 ML 999 ML IV (09:55)
[2022-06-26 09:58] LABS: Basophils # 0.1 10^3/uL (0.0-0.1); Basophils % 0.4 %; Eosinophils % 0.2 %; Hematocrit 45.3 % (42.0-52.0); Hemoglobin 15.4 g/dL (11.7-16.6); Lymphocytes % 8.3 %; Mean Corpuscular Volume 88.3 fl (80-94); Mean Platelet Volume 9.6 fL (7.4-10.4); Monocytes # 0.5 10^3/uL (0.2-0.9); Neutrophils # 10.49 10^3/uL (1.8-7.7); Neutrophils % 86.1 %; Nucleated Red Blood Cells % 0 %; Platelet Count 212 10^3/cmm (130-400); Red Blood Count 5.13 10^6/uL (4.1-5.3); Red Cell Distribution Width 12.1 % (12.1-15.1); White Blood Count 12.2 10^3/uL (4.0-10.0)
[2022-06-26 10:14] LABS: Blood Urea Nitrogen 18 mg/dL (6-20); Calcium 9.2 mg/dL (8.5-10.5); Carbon Dioxide 23 mmol/L (22-29); Chloride 106 mmol/L (98-107); Glomerular Filtration Rate 62.8 mL/min (90-130); Glucose 155 mg/dL (65-115); Osmolality Calculated 293 mOsm/kg (285-295); Sodium 139 mmol/L (136-145)
--- NOTE | 2022-06-26 10:19 | CT_ITS ---
WS: [id number] CT ABDOMEN PELVIS TECHNIQUE: Noncontrast CT of the abdomen and pelvis with coronal and sagittal reformatted images. CLINICAL INFORMATION: flank pain COMPARISON: None. DLP: 793.[address] scans at [facility] use at least one of these dose optimization techniques: automated e xposure control; mA and/or kV adjustment per patient size (includes targeted exams where dose is matc hed to clinical indication); or iterative reconstruction. FINDINGS: Normal appendix in the RIGHT lower quadrant. Appendix is decompressed. No evidence of acute appendici tis. No hydronephrosis in either kidney. Slightly prominent RIGHT extrarenal pelvis. Mild RIGHT ureterecta sis with slight induration about the RIGHT ureter may be due to recently passed calculus. No visualiz ed obstructing calculi. Tiny dependent calculus in the dorsal bladder suspicious for recently passed calculus measuring 3 mm. No obstructing LEFT renal or ureteral calculi. Tiny subcentimeter nonobstructing RIGHT calyceal tip calculi. RIGHT upper pole renal cyst measuring 1 2 mm. Slight atelectasis in the lung bases. Noncontrast liver is normal. Normal GE junction. Normal noncont rast spleen. Noncontrast pancreas is normal. Adrenal glands are normal. Normal sigmoid colon. Normal caliber abdominal aorta. Retroaortic LEFT renal vein. No high-grade small or large bowel obstr uction. No free fluid in the abdomen or pelvis. Mild disc bulging L4-L5. No visualized pars defects. CT/CT kidney stone [id number] IMPRESSION: 1. Normal appendix in the RIGHT lower quadrant. No evidence of acute appendici tis. 2. No hydronephrosis in RIGHT kidney. 3. Slight RIGHT ureterectasis with slight induration of the RIGHT ureter suspi cious for recently passed calculus. Tiny 3 mm suspected recently passed calculu s in the dorsal bladder measuring 3 mm. Slightly prominent RIGHT extrarenal pel vis. 4. RIGHT upper pole renal cyst measuring 12 mm. 5. No other suspicious findings.
[2022-06-26 12:41] VITALS: BP 127/77; PULSE 78; RESP 15; TEMP 36.7; O2SAT 100
--- NOTE | 2022-06-27 08:34 | DCPLANNER ---
Addendum entered by Angi Ramirez 06/29/22 13:15: senior manager mmcoe received the following message from the urology clinic: Tried to schedule pt for 06/27/22 but pt. is out of town and will not schedule at this time Original Note: senior manager mmcoe had message to schedule a follow up appointment for patient with urology. senior manager mmcoe sent patients information to the front office staff at urology. Patients information will be printed and reviewed. Clinic will call patient with appointment information.
== END 2022-06-26 12:42 | disposition home or self-care (01) ==
PROVIDERS: Physician Assistant; Emergency Provider Family Medicine; PCP Family Medicine Adult Medicine
DX: N20.0 Calculus of kidney (principal); Z87.442 Personal history of urinary calculi; F17.210 Nicotine dependence, cigarettes, uncomplicated
CPT/HCPCS: 74018; 74176; 80048; 81000; 81001; 85025; 96360; 99285; J7030

== ENCOUNTER → 2023-05-20 11:54 | Outpatient (BNVA) | payer OTHER, SELFPAY | PROVIDERS: PCP Family Medicine; Visit Provider Family Medicine | DX: Z13.6 Encounter for screening for cardiovascular disorders | CPT/HCPCS: 80053; 80061; 84443; 85025 ==

== ENCOUNTER 2023-05-23 10:30 | Outpatient (CLI) | payer OTHER, SELFPAY ==
--- NOTE | 2023-05-23 10:50 | XR_ITS ---
WS: [id number] Left calcaneus, 2 views, 05/23/2023 Clinical Data: M79.671 - Pain in left foot Comparison: None. Findings: There are no fractures or dislocations. The talus and calcaneus appear intact. The soft tissues are n ormal. Impression: Negative left calcaneus.
--- NOTE | 2023-05-23 10:50 | XR_ITS ---
WS: [id number] Right calcaneus, 2 views, 05/23/2023 Clinical Data: M79.671 - Pain in right foot Comparison: None. Findings: There are no fractures or dislocations. The talus and calcaneus are intact. The soft tissues are norm al. Impression: Negative right calcaneus.
== END 2023-05-23 10:31 | disposition home or self-care (01) ==
PROVIDERS: PCP Family Medicine; Visit Provider Family Medicine
DX: M79.671 Pain in right foot (principal); M79.672 Pain in left foot
CPT/HCPCS: 73650

== ENCOUNTER → 2023-08-27 14:16 | Outpatient (BNVA) | payer OTHER, SELFPAY | PROVIDERS: PCP Family Medicine; Visit Provider Podiatrist Foot & Ankle Surgery | DX: M79.671 Pain in right foot (principal); M79.672 Pain in left foot; M72.2 Plantar fascial fibromatosis | CPT/HCPCS: 73630 ==

== ENCOUNTER 2024-01-01 07:50 | Outpatient (CLI) | payer OTHER, SELFPAY ==
--- NOTE | 2024-01-01 08:00 | NM_ITS ---
WS: [id number] NUCLEAR MEDICINE HIDA SCAN WITH GALLBLADDER EJECTION FRACTION HISTORY: right upper quadrant pain COMPARISON: None available. TECHNIQUE: The patient was intravenously injected with 7.6 mCi of TC99m Mebrofenin. Immediate imaging over the right upper quadrant was followed by 5 minute image and additional images for a total of 60 minutes. Normal uptake of radiotracer throughout the liver. Activity identified in the gallbladder at 15 minutes and well distended by 60 minutes. Activity in the proximal small bowel was seen by 10 minutes. Good washout of the radiotracer from the liver by 60 minutes. The patient then drank 8 ounces of Ensure Plus. Ejection fraction at 60 minutes was 27%. Normal GB ej ection fraction is 35-75%. Post fatty meal symptoms: None. NM/NM hepatobiliary w phar* [id number] IMPRESSION: 1. Abnormal gallbladder ejection fraction. Consider chronic cholecystitis. 2. No common bile duct or cystic duct obstruction.
== END 2024-01-01 07:51 | disposition home or self-care (01) ==
LOC: RAD 07:51
PROVIDERS: PCP Family Medicine; Visit Provider Family Medicine
DX: R10.11 Right upper quadrant pain (principal)
CPT/HCPCS: 78227; A9537

== ENCOUNTER 2024-01-21 08:51 | Day surgery (SDC) | payer OTHER, SELFPAY ==
[2024-01-21] VITALS (22 sets, daily range): BP systolic 121–171; BP diastolic 70–112; PULSE 71–91; RESP 18–37; TEMP 36.1–36.5; O2SAT 89–100
--- NOTE | 2024-01-21 09:10 | W.PM.OPSUD ---
Surgery/Procedure H&P Update DATE OF PROCEDURE: January 21, 2024 DATE H&P PERFORMED: 01/06/24 H&P UPDATE INFORMATION: I have reviewed H&P completed within last 30 days, I have examined patient prior to procedure and No changes to prior documentation PLANNED PROCEDURE: Operation Date: 01/21/24 10:20 Proposed Procedures p Laparoscopic Cholecystectomy 06116, R10.11, K82.8(Not Applicable) - Ned Love, DO
[2024-01-21] MEDS: sodium chloride 0.9% 1,000 ML 30 ML IV (09:18)
--- NOTE | 2024-01-21 09:20 | ANES.PREANE2 ---
Pre-Anesthetic Assessment Height/Weight: Height 1.75 m Weight 101.605 kg Temp Pulse Resp BP Pulse Ox O2 Del Method 97.5 F L 77 18 147/90 93 Room Air 01/21/24 09:06 01/21/24 09:06 01/21/24 09:06 01/21/24 09:06 01/21/24 09:06 01/21/24 09:06 Operation Date: 01/21/24 10:20 Proposed Procedures p Laparoscopic Cholecystectomy 67631, R10.11, K82.8(Not Applicable) - Ned Love DO Familial anesthetic complications: none Was Beta Caleb taken within 24 hours: N/A Was Clonidine taken within 24 hours: N/A Last intake: Intake Last Liquid Date 01/20/24 Last Liquid Time 20:00 Last Solid Date 01/20/24 Last Solid Time 20:00 Social No alcohol and No tobacco Exam alert, oriented x 3, clear to auscultation bilaterally and regular rate & rhythm Airway Mallampati: Class IV Dentition: full GI Gastroesophageal Reflux Disease Anesthetic Plan ASA status: 2 Anesthesia: General Risk of > 500 ml blood loss (7ml/kg in children): No Medications/Allergies Home Medications Medication Instructions Recorded Confirmed Last Taken Type propranolol 80 mg capsule,24 80 mg PO .qhs #60 caps 01/07/24 01/21/24 01/19/24 Rx hr,extended release rizatriptan 10 mg disintegrating See Rx Instructions .Route 01/14/24 01/21/24 01/17/24 Rx tablet .COMPLEX #14 tabs Allergies Allergy/AdvReac Type Severity Reaction Status Date / Time No Known Allergies Allergy Verified 01/17/24 13:28 PENDING SALE TO [facility] Anesthesia Medical History Nephrolithiasis Acute bronchitis and bronchiolitis Chest wall pain, chronic Elevated WBC count Hematuria Left upper quadrant abdominal pain of unknown etiology 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
[2024-01-21] MEDS: ceFAZolin 2,000 MG in sodium chloride 0.9% (plus) 50 ML 100 MG IV (09:28)
[2024-01-21] MEDS: lidocaine-epi 2% PF 1:200,000 20 mL SDV XX (09:56)
--- NOTE | 2024-01-21 10:05 | P.OP_ITS ---
Operative Report Date of procedure: January 21, 2024 Surgeon: Ned Love DO Brief History: This is a very pleasant 38-year-old gentleman who presented my office with abdominal pain. He was diagnosed with biliary dyskinesia. Laparoscopic cholecystectomy was indicated. The risk and benefits were explained and documented. Procedure: Preoperative diagnosis: Biliary dyskinesia Postoperative diagnosis: Same Procedure performed: Laparoscopic cholecystectomy Surgeon: Dr. Ned Love DO Estimated blood loss: 5 mL Specimens: Gallbladder to pathology Complications: None apparent Description of procedure: Patient was wheeled into the operative room and placed on the OR table in a supine position. Abdomen was inspected prepped and draped in usual sterile fashion. Time-out was performed and all present were in agreement. A 15 blade scalp was used to make a stab incision in the left upper quadrant and intra- abdominal insufflation was achieved using a Veress needle. After localizing the tissue incisions were made and a 5 millimeter trocar was placed into the umbilicus as well as 2 in the right upper quadrant. A 12 millimeter trocar was placed in the epigastrium. Gallbladder was grasped and elevated. The triangle of Calot was carefully dissected using blunt dissection and electrocautery until the triangle of Calot clearly identified. The cystic duct was clipped proximally and double clipped distally. The duct was then ligated proximally. The cystic artery was doubly clipped and ligated. The gallbladder was then removed from the liver bed using electrocautery. The gallbladder was removed from the abdomen using an Endo-Catch bag through the epigastric incision. The liver bed was inspected and no bleeding was seen. The abdomen was irrigated and suctioned. All ports removed. Skin was washed and dried. Incisions were closed with 4-0 Monocryl in a subcuticular interrupted fashion. Skin glue was applied. Patient tolerated the procedure well.
--- NOTE | 2024-01-21 10:30 | PC.NURSE ---
Pt combative and agitated in PACU. Anesthesia and multiple nurses at bedside for patient safety.
[2024-01-21] MEDS: fentaNYL 50 mcg/mL INJ 2mL IVP (11:30)
--- NOTE | 2024-01-21 11:30 | PC.NURSE ---
Addendum entered by Aria Abbasi RN 01/21/24 11:47: 100 ml urine, note 1100 ml Original Note: Pt c/o unable to urinate. Dr Love ordered straight cath x 1. Sterile technique, 1100 ml urine yield. Pt voices some relief. 50 mcg fentanyl given, discussed pain after surgery. Resting at this time. Anesthesia and Dr Love checked on patient multiple times.
--- NOTE | 2024-01-21 12:08 | PC.NURSE ---
When leaving PACU, pt voids urge to urinate. Urinal offered several times. Unable to void. Dr Cardona and Dr Love called. Report given to LUKASZ Camacho in phase 2.
--- NOTE | 2024-01-21 12:12 | PC.NURSE ---
Dr Love stated over phone if patient has not voided prior to leaving phase 2, bladder scan patient. If > 500 ml in bladder, place hudson with leg bag and follow-up in clinic with Dr Love tomorrow. Primary nurse Janice notified.
[2024-01-21] MEDS: HYDROcodone-acetaminophen 7.5-325 mg Tablet 1 TAB PO (13:36)
--- NOTE | 2024-01-21 14:15 | ANE.PACU2 ---
Inpatient post-anesthesia follow up: Airway intact: Yes Vital signs: Temperature 97.7 F Pulse Rate 91 Respiratory Rate 22 Blood Pressure 138/78 Pulse Oximetry 94 Oxygen Delivery Me thod Room Air Oxygen Flow Rate 6 Fraction of Inspir ed Oxygen Hydration adequate: Yes Nausea and vomiting: No Pain level: 1 Mental status: Baseline
== END 2024-01-21 14:15 | disposition home or self-care (01) ==
PROVIDERS: PCP Family Medicine; Visit Provider Surgery
PROC: 0FT44ZZ Resection of Gallbladder, Percutaneous Endoscopic Approach (ICD-10-PCS; CPT 47562; principal; 2024-01-21 10:10)
DX: K81.1 Chronic cholecystitis (principal); K21.9 Gastro-esophageal reflux disease without esophagitis; F17.210 Nicotine dependence, cigarettes, uncomplicated
CPT/HCPCS: 47562; 88304; J0690; J1100; J1170; J2250; J2405; J2704; J2710; J3010; J3490; J7030

== ENCOUNTER 2024-07-30 12:05 | Outpatient (CLI) | payer OTHER, SELFPAY ==
--- NOTE | 2024-07-30 12:08 | MR_ITS ---
WS: [id number] MRI BRAIN WITH AND WITHOUT CONTRAST HISTORY: G43.119 - Migraine with aura, intractable, without status... COMPARISON: 08/08/2011 TECHNIQUE: Multiplanar imaging performed through the brain with MultiHance 19 ml's IV. No acute infarcts are seen. Padilla-white matter differentiation is well preserved. No susceptibility artifacts or prior lacunar infarcts. Ventricles and extra-axial spaces are normal. Clivus and pituitary gland are normal. Visualized posterior fossa and brainstem are also normal. Incidental note is made of a [address] Postcontrast images are negative for masses or vascular malformations. Dural venous sinuses are normal. Paranasal sinuses: Well aerated with no significant disease. Mastoid air cells: Normal. Calvarium and scalp: Normal. MR/MR head wo/w con [id number] IMPRESSION: 1. Normal MRI brain with and without contrast. No interval change since 2010. 2. No mass or vascular malformations. No prior stroke.
[2024-07-30] MEDS: gadobenate dimeglumine 20 mL vial IV (12:43)
== END 2024-07-30 12:06 | disposition home or self-care (01) ==
LOC: RAD 12:06
PROVIDERS: PCP Clinical Nurse Specialist Adult Health; Visit Provider Clinical Nurse Specialist Adult Health
DX: G43.119 Migraine with aura, intractable, without status migrainosus (principal)
CPT/HCPCS: 70553

== ENCOUNTER → 2025-08-17 08:10 | Outpatient (BNVA) | payer OTHER, SELFPAY | PROVIDERS: PCP Clinical Nurse Specialist Adult Health; Visit Provider Clinical Nurse Specialist Adult Health | DX: R35.0 Frequency of micturition (principal); I10 Essential (primary) hypertension | CPT/HCPCS: 80053; 80061; 81000; 83036; 84153; 84443; 85025; 87086 ==